=== PATIENT | male | born 1985 | race Caucasian/White ===

== ENCOUNTER 2018-06-08 11:18 | Emergency (ER) | payer OTHER ==
[~2018-06-08] VITALS: Ht 175.3 cm; Wt 98.0 kg
[2018-06-08 11:40] VITALS: Ht 175.3 cm; Wt 98.0 kg
[2018-06-08 13:43] VITALS: BP 124/86
== END 2018-06-08 13:43 | disposition home or self-care (01) ==
LOC: ED 11:18
DX: H66.92 Otitis media, unspecified, left ear (principal); J45.909 Unspecified asthma, uncomplicated